=== PATIENT | male | born 1955 | race African-American/Black ===

== ENCOUNTER 2017-12-23 10:02 | Day surgery (SDC) | payer MEDICAID ==
[~2017-12-23] VITALS: Ht 172.7 cm; Wt 70.5 kg
--- NOTE | ~2017-12-23 | OP ---
PATIENT NAME: RAUL ESTRELLA MEDICAL RECORD: [id number] LOCATION:D[facility] ADMISSION DATE: SURGEON: CARLIN DOMINGUEZ DO DATE OF OPERATION: 12/23/2017 PROCEDURE: Colonoscopy. INDICATIONS FOR PROCEDURE: Anemia and positive stool guaiac. SCOPE: Olympus video pediatric colonoscope. MEDICATIONS: Propofol 200 mg IV per anesthesia. WITHDRAWAL TIME: 9 minutes. ESTIMATED BLOOD LOSS: None. COMPLICATIONS: None. FINDINGS: Informed consent was given. The patient was made comfortable with the above medication. After reaching an adequate level of sedation by slow IV push, the patient was placed on his left side. A digital rectal examination was performed and was normal. The endoscope was then advanced under direct visualization, through the rectum to the cecum, confirmed by the presence of the appendiceal orifice and ileocecal valve. The endoscope was slowly withdrawn and mucosa was carefully examined. The prep quality was excellent. There were no polyps visualized on today's examination. There were no diverticula either. Retroflexion was performed in the rectum with visualization of grade II internal hemorrhoids without bleeding. The endoscope was then withdrawn from the patient. The patient tolerated the procedure well and there were no complications. IMPRESSIONS: 1. Grade II internal hemorrhoids without bleeding. 2. Otherwise normal colonoscopy. PLAN AND RECOMMENDATIONS: 1. Discharge home when recovery parameters are met. 2. If there is further concern of bleeding in the digestive tract, consider an upper endoscopy. The presence of hemorrhoids could explain the positive guaiac of his stool. If there are no further concerns of digestive tract bleeding, consider further workup of anemia with iron studies, hemolysis studies including a haptoglobin and LDH level, peripheral smear, and reticulocyte count. 3. Recall colonoscopy in 7 to 10 years for colon cancer screening purposes. TRANSINT:[id number] Voice Confirmation ID: [id number] DOCUMENT ID: [id number] OPERATIVE REPORT [id number] RAUL ESTRELLA CARLIN DOMINGUEZ DO at 1148 CC: [id number] DICTATION DATE: 12/23/17 1422 CALCULUS PROFESSOR: 12/23/17 1536 [facility] 12/23/17 [place] [id number]
[2017-12-23 10:26] LABS: ANION GAP 7.5 mmol/L (8-16); CALCIUM 9.1 mg/dL (8.5-10.1); CARBON DIOXIDE 31.5 mmol/L (21.0-32.0); CREATININE - SERUM 1.1 mg/dL (0.6-1.3)
[2017-12-23 12:53] VITALS: BP 143/69; Ht 172.7 cm; Wt 70.5 kg
[2017-12-23] MEDS ORDERED: HYDROCHLOROTH12.5 M1 PO (13:11)
[2017-12-23] MEDS ORDERED: LIPITOR20 MG PO (13:12)
[2017-12-23] MEDS ORDERED: POTASSIUM CHLO10 ME1 PO (13:13)
[2017-12-23] MEDS ORDERED: PLAVIX75 MG PO (13:14)
[2017-12-23] MEDS ORDERED: BAYER CHEWABLE81 MG PO (13:14)
[2017-12-23] MEDS ORDERED: VITAMIN D5000 UNIT PO (13:14)
[2017-12-24 05:54] LABS: BASOPHILS 0 % (0-2); EOSINOPHILS 0.4 % (0-7); HEMATOCRIT 34.9 % (42.0-54.0); HEMOGLOBIN 10.9 g/dL (13.5-17.5); IMMATURE GRANULOCYTES 0.2 % (0-5); LYMPHOCYTES 48.9 % (15-50); MCH 26.9 pg (26.0-34.0); MCHC 31.2 g/dL (31.0-37.0); MCV 86.2 fL (80.0-100.0); MEAN PLATELET VOLUME 9.3 fL (7.4-10.4); MONOCYTES 8.7 % (2-11); NEUTROPHILS 41.8 % (40-80); PLATELET COUNT 267 10x3/uL (130-400); RBC 4.05 10x6/uL (4.20-6.10); RDW 15.6 % (11.5-14.5); WBC 4.5 10x3/uL (4.8-10.8)
== END 2017-12-23 15:45 | disposition home or self-care (01) ==
LOC: D.OPS 10:02
PROVIDERS: Anesthesiology
DX: D64.9 Anemia, unspecified (principal); R19.5 Other fecal abnormalities; K64.8 Other hemorrhoids